=== PATIENT | female | born 1960 | race Asian ===

== ENCOUNTER 2019-06-21 19:18 | Inpatient (IN) | payer MEDICAID, OTHER ==
[~2019-06-21] VITALS: Ht 121.9 cm; Wt 40.8 kg
[2019-06-22] VITALS (32 sets, daily range): BP systolic 95–136; BP diastolic 58–92
--- NOTE | 2019-06-22 05:30 | NUR ---
BOTTOM LINER NOTE RECEIVED PT VIA GURNEY WITH EMT'S AT BEDSIDE PER ACLS PROTOCOL. PT AWAKE AND ALERT. SPEAKS SOME MAURITIAN BUT MAINLY NEPALI SPEAKING.ON BIPAP TOLERATING SETTINGS AND SATURATING WELL. TRANSFERRED SAFELY TO ROOM 251. TELE- ST 104. BILATERAL LOWER EXTREMITIES WRAPPED WITH ZIGGY BANDAGE AND LEG CASTS. NOTED WITH NON-PITTING GENERALIZED EDEMA. WOUND CONSULT ORDERED. C/O 6/10 PAIN TO LEGS AND REPOSITIONED FOR COMFORT. BERNAL CATHETER IN PLACE AND DRAINING BY GRAVITY. BROTHER AT BEDSIDE. CALL LIGHT WITHIN REACH. WILL MONITOR.
[2019-06-22] MEDS ORDERED: MAGNESIUM HYDROXIDE 30 ML UDC PO PRN (06:00)
[2019-06-22] MEDS ORDERED: ONDANSETRON HCL/PF 4 MG/2 ML VIAL IVP PRN (06:00)
[2019-06-22] MEDS ORDERED: Z GUARD REMEDY 2 OZ OINT TP PRN (06:00)
[2019-06-22] MEDS ORDERED: ZOLPIDEM TARTRATE 5 MG TABLET PO PRN (06:00)
[2019-06-22] MEDS ORDERED: ACETAMINOPHEN 325 MG TABLET PO PRN (06:00)
[2019-06-22 06:34] LABS: BASOPHILS # (AUTO) 0.1 /CMM (0.0-0.2); BASOPHILS % (AUTO) 0.5 % (0.0-2.0); EOSINOPHILS % (AUTO) 0.3 % (0.0-6.0); HEMATOCRIT 29 % (33-45); HEMOGLOBIN 9.8 g/dL (11.5-14.8); LYMPHOCYTES # (AUTO) 0.3 /CMM (0.8-4.8); LYMPHOCYTES % (AUTO) 3.3 % (20.0-44.0); MEAN CORPUSCULAR HGB CONC 34 g/dl (31.0-36.0); MEAN CORPUSCULAR VOLUME 90 fL (82-100); MONOCYTES # (AUTO) 0.2 /CMM (0.1-1.30); MONOCYTES % (AUTO) 2.5 % (2.0-12.0); NEUTROPHILS # (AUTO) 9.1 /CMM (1.8-8.9); NEUTROPHILS % (AUTO) 93.4 % (43.0-81.0); PLATELET COUNT (AUTO) 331 /CMM (150-450); RED BLOOD CELL COUNT(AUTO) 3.24 MIL/uL (4.0-5.2); WHITE BLOOD COUNT (AUTO) 9.7 K/uL (4.3-11.0)
[2019-06-22 07:01] LABS: ALBUMIN 1.6 g/dL (3.4-5.0); BILIRUBIN,TOTAL 0.3 mg/dL (0.2-1.0); CALCIUM, SERUM 8.7 mg/dL (8.5-10.1); CREATININE 0.2 mg/dL (0.6-1.3); MAGNESIUM 1.5 mg/dL (1.8-2.4); PHOSPHORUS 1.9 mg/dL (2.5-4.9); POTASSIUM 4.3 mmol/L (3.5-5.1); TOTAL PROTEIN, SERUM 5.5 g/dL (6.4-8.2)
--- NOTE | 2019-06-22 07:45 | NUR ---
ICU/RN INITIAL NOTES,AM RECEIVED BEDSIDE REPORT FROM NIGHT NURSE. PT ALERT, AWAKE, FOLLOWS COMMANDS. PT SYRIAC SPEAKING ONLY, VERY MINIMAL GERMAN. PT ON NASAL CANULA, NO ACUTE DISTRESS NOTED, SINUS TACH ON TELE. PT IS A DIRECT ADMIT FROM [facility]. PT PREVIOUSLY ON BIPAP, NOW TOLERATING NASAL CANULA WELL. BERNAL CATH IN PLACE, DRAINING YELLOW URINE. PT AFEBRILE. BILATERAL LEGS WRAPPED IN ZIGGY WRAP, PT HAD A FALL WITH BILATERAL FEMUR FX. PT IS S/P OPEN REDUCTION AT [facility]. ORTHO CONSULT PENDING. GENERALIZED EDEMA NOTED. PIVS PATENT AND INTACT, NO S/S OF INFECTION OR INFILTRATION NOTED. ALL NEEDS WILL BE ATTENDED TO, SAFETY MEASURES TAKEN, BED IN LOW POSITION, SIDE RAILS UP, CALL LIGHT WITHIN REACH. WILL CONTINUE CARE.
--- NOTE | 2019-06-22 07:45 | NUR ---
METAL CUTTER NOTE PT REMAINED STABLE DURING SHIFT. REMOVED BIPAP AND PLACED ON 4L OF O2 VIA NC AND TOLERATING WELL. NOTED WITH NONPRODUCTIVE COUGH. HOB ELEVATED AND ON ASPIRATION PRECAUTIONS. ALL NEEDS ATTENDED TO PROMPTLY. ENDORSED TO NEXT SHIFT FOR CONTINUITY OF CARE.
[2019-06-22] MEDS: ENOXAPARIN SODIUM 40 MG/0.4 ML DISP.SYRIN SQ SCH (11:28)
[2019-06-22 11:30] LABS: ABG BASE EXCESS 10.9 mmol/L; ABG OXYGEN SATURATION 96.7 % (92.0-98.5); ABG PCO2 43.1 mmHg (35.0-45.0); ABG PH 7.524 (7.350-7.450); AaDO2 127.9 mmHg; COHb 0.3 % (0.5-1.5); MetHb 0.5 % (0.0-1.5); O2Hb 95.9 % (94.0-97.0); SITE, ABG Right Radial; VENT MODE, BG NASAL CANNULA
[2019-06-22] MEDS ORDERED: FEE PK DOSING 1 MIN EA MC ONE (11:43)
--- NOTE | 2019-06-22 12:00 | NUR ---
ICU/RN: FLORES MCCONNELL AT BEDSIDE. PT ASSESSED, NEW XRAY REVIEWED. BILATERAL LEGS REDRESSED WITH ZIGGY WRAP, IMMOBILIZERS/SPLINTS LEFT IN PLACE. NO NEW ORDERS AT THIS TIME. WILL CONTINUE TO MONITOR AND ASSESS. NO SURGICAL PLANS AT THIS TIME. PULSES EQUAL AND PALPABLE. GENERALIZED EDEMA NOTED.
[2019-06-22] MEDS: Magnesium 1GM/D5W 100ML PREMIX 100 ML IV SCH ×2 (12:23→13:21)
[2019-06-22] MEDS: MEROPENEM 500 MG in IV NS 0.9% 50 ML IV SCH ×2 (12:52→21:27)
--- NOTE | 2019-06-22 13:20 | NUR ---
ICU/RN: DIETITIAN AT BEDSIDE. PT NEEDS ASSESSED, NEW ORDERS FOR ENSURE RECEIVED. PT HAS HX OF FAILURE TO THRIVE AND POOR APPETITE.
[2019-06-22] MEDS: VANCOMYCIN 0.75 GM in IV D5W 250 ML IV SCH (13:23)
[2019-06-22] MEDS: ENSURE ENLIVE 237 ML LIQUID (VANILLA) PO SCH ×2 (14:00→17:40)
[2019-06-22] MEDS ORDERED: K PHOS NEUTRAL 250 MG TABLET PO ONE (14:00)
--- NOTE | 2019-06-22 16:00 | NUR ---
ICU/RN: BROTHER AT BEDSIDE. UPDATES GIVEN. PT'S PAIN ASSESSED, PT STATES SHE HAS SOME PAIN BUT DOES NOT WANT ANY PAIN MEDICATION. RATES THE PAIN AT 3/10. I REMINDED THE PT SHE CAN HAVE IT AT ANY TIME. PT CONTINUES TO STATE THAT SHE DOES NOT WANT ANY PAIN MEDICATION. WILL CONTINUE TO REASSESS.
[2019-06-22] MEDS: HYDROMORPHONE 1 MG/1 ML DISP.SYRIN IV PRN ×2 (18:39→21:42)
--- NOTE | 2019-06-22 18:39 | NUR ---
ICU/RN: PRN MAIN MEDICATION GIVEN. WILL REASSESS.
--- NOTE | 2019-06-22 19:21 | NUR ---
ICU/RN: INITIAL NOTES,AM REPORT ENDORSED TO NIGHT NURSE FOR [place]. DURING REPORT PT HR WENT UP TO 155-165, PT DESATURATED TO 88% ON 2 LITERS NASAL CANULA. CALLED, NEW TLO ORDERS RECEIVED, WILL FOLLOW THROUGH. STAT EKG IS BEING DONE, ORDERS FOR CTA PULMONARY RECEIVED, WILL OBTAIN CONSENT FROM BROTHER. JODIN RASHEEDZEJaneth ALSO ORDERED FOR RATE CONTROL. ALL NEEDS ATTENDED TO, SAFETY MEASURES TAKEN, BED IN LOW POSITION, SIDE RAILS UP, CALL LIGHT WITHIN REACH. WILL CONTINUE CARE.
--- NOTE | 2019-06-22 19:30 | NUR ---
DIAPER FOLDER NOTE RECEIVED PT AWAKE. C/O PAIN TO BILATERAL LOWER EXTREMITIES. DILAUDID JUST GIVEN. ON 4L OF O2 VIA NC. TELE- ST 150-160. WILL GIVE CARDIZEM 10MG IVP. BERNAL CATHETER IN PLACE AND DRAINING BY GRAVITY. WILL MONITOR.
[2019-06-22] MEDS: DILTIAZEM HCL 50 MG IV IVP PRN (19:33)
[2019-06-22] MEDS: HYDROCODONE/APAP 5/325MG 1 EACH TABLET PO PRN (20:10)
[2019-06-22] MEDS ORDERED: IOHEXOL-350 100 ML VIAL IV ONE ×2 (20:11→23:50)
[2019-06-22] MEDS ORDERED: CT SWABBABLE VALVE TRANS SET 1 EA INFUS.SET MC ONE ×2 (20:11→23:50)
[2019-06-22] MEDS ORDERED: IV NS 0.9% 250 ML IV ONE ×2 (20:11→23:50)
--- NOTE | 2019-06-22 20:20 | NUR ---
HOSPITAL ADMINISTRATOR NOTE RECEIVED CONSENT FROM BROTHER FOR CTA PULMONARY. PT TAKEN TO CT.
--- NOTE | 2019-06-22 20:46 | NUR ---
BALLOON SANDER NOTE RETURNED WITH PT FROM CT SAFELY.
--- NOTE | 2019-06-22 21:22 | NUR ---
Patient is alert, primary language is Portuguese. Has hx of polio, dextroscoliosis with recent fall.Spoke with brother Leonie [phone] who provided all info. Patient resides with her mother 92years old and father 96years old in the upper level apartment with elevator access. Patient is wheelchair bound, receives assistance with adl's from her parents and brother who lives nearby visits frequently. Discussed dc planning options, family is requesting SNF placement in [facility] area so closer to her parents to visit. Faxed request and left message to [facility] [employer] [facility] [employer] for contracted list of SNF P [phone] / F [phone] Addendum: 06/22/19 at 2125 by KAM PARADA RN Amended: Links added.
--- NOTE | 2019-06-22 23:46 | NUR ---
Patient is alert, primary language is Kiswahili. Has hx of polio, dextroscoliosis with recent fall.Spoke with brother Leonie [phone] who provided all info. Patient resides with her mother 92years old and father 96years old in the upper level apartment with elevator access. Patient is wheelchair bound, receives assistance with adl's from her parents and brother who lives nearby visits frequently. Discussed dc planning options, family will not be able to care for the patient. She will need SNF placement and family requested in [facility] area so closer to her parents to visit. Faxed request and left message to [facility] [employer] for contracted list of SNF P [phone] / F [phone] Addendum: 06/22/19 at 2346 by KAM PARADA RN Amended: Links added.
[2019-06-23] VITALS (15 sets, daily range): BP systolic 112–155; BP diastolic 76–105
[2019-06-23] MEDS: HYDROMORPHONE 1 MG/1 ML DISP.SYRIN IV PRN ×3 (00:42→09:05)
[2019-06-23] MEDS: VANCOMYCIN 0.75 GM in IV D5W 250 ML IV SCH ×2 (02:24→14:19)
[2019-06-23] MEDS: MEROPENEM 500 MG in IV NS 0.9% 50 ML IV SCH ×3 (05:06→20:26)
[2019-06-23] MEDS: HYDROCODONE/APAP 5/325MG 1 EACH TABLET PO PRN ×5 (05:07→20:02)
[2019-06-23 05:15] LABS: BASOPHILS % (AUTO) 0.3 % (0.0-2.0); EOSINOPHILS % (AUTO) 0.6 % (0.0-6.0); HEMATOCRIT 27 % (33-45); HEMOGLOBIN 9.1 g/dL (11.5-14.8); LYMPHOCYTES # (AUTO) 0.5 /CMM (0.8-4.8); LYMPHOCYTES % (AUTO) 5.6 % (20.0-44.0); MEAN CORPUSCULAR HGB CONC 33 g/dl (31.0-36.0); MEAN CORPUSCULAR VOLUME 90 fL (82-100); MONOCYTES # (AUTO) 0.3 /CMM (0.1-1.30); NEUTROPHILS # (AUTO) 7.3 /CMM (1.8-8.9); NEUTROPHILS % (AUTO) 89.5 % (43.0-81.0); PLATELET COUNT (AUTO) 317 /CMM (150-450); RED BLOOD CELL COUNT(AUTO) 3.03 MIL/uL (4.0-5.2); WHITE BLOOD COUNT (AUTO) 8.2 K/uL (4.3-11.0)
[2019-06-23 05:32] LABS: CALCIUM, SERUM 8.2 mg/dL (8.5-10.1); CREATININE 0.3 mg/dL (0.6-1.3); MAGNESIUM 2.2 mg/dL (1.8-2.4); PHOSPHORUS 2.8 mg/dL (2.5-4.9); POTASSIUM 3.3 mmol/L (3.5-5.1)
[2019-06-23 07:15] LABS: FERRITIN 835 ng/mL (8-388)
--- NOTE | 2019-06-23 07:20 | NUR ---
ATHLETICS TEACHER NOTES RECEIVED PT AWAKE IN BED LAYING FLAT PER PATIENTS REQUEST. A/O X4 NO S/S OF RESPIRATORY DISTRESS ON 2 LTRS NASAL CANNULA SATURATING 98%. C/O OF BILATERAL LEG PAIN LAST PAIN MED GIVEN@ 0500. ST [place] ON THE MONITOR AFEBRILE. BERNAL CATH DRAINING CLEAR YELLOW URINE . LALITO LEG CASTS PRESENTS PEDAL PULSES FAINT +3 EDEMA. IV TO RFA # 20/AZRA # 20/EJ#18 AND FUENTES MIDLINE ALL SALINE LOCK FLUSHING WELL. SAFETY AND ASPIRATION PRECAUTIONS IN PLACE BED IN LOW LOCKED POSITION WILL CONT TO MONITOR ACCORDINGLY
[2019-06-23] MEDS: POTASSIUM CHLORIDE 20 MEQ TAB.PRT.SR PO SCH ×2 (07:40→08:38)
--- NOTE | 2019-06-23 07:41 | NUR ---
MECHANICAL MAINTENANCE WORKER NOTE PT REMAINED STABLE DURING SHIFT. PAIN MANAGED PER MD ORDERS. PT STATES NO PAIN AT THIS TIME. CARDIZEM 10 MG IVP GIVEN X1 DURING SHIFT. TELE- ST 113. REPOSITIONED Q2H. ALL NEEDS ATTENDED TO PROMPTLY. WILL ENDORSE TO NEXT SHIFT FOR CONTINUITY OF CARE.
[2019-06-23] MEDS: ENSURE ENLIVE 237 ML LIQUID (VANILLA) PO SCH ×2 (07:50→17:32)
[2019-06-23 08:00] LABS: IRON, SERUM 60 ug/dl (50-175); TOTAL IRON BINDING CAPACITY 203 ug/dl (250-450)
--- NOTE | 2019-06-23 09:00 | NUR ---
VERBAL ORDER TAKEN FROM DR PURI D/Jayde DILAUDID 1 MG Q3HR NEW ORDER DILAUDID 2MG Q4HR FOR SEVERE PAIN
[2019-06-23] MEDS: ENOXAPARIN SODIUM 40 MG/0.4 ML DISP.SYRIN SQ SCH (09:03)
[2019-06-23] MEDS ORDERED: POTASSIUM CHLORIDE 20 MEQ TAB.PRT.SR PO ONE (10:00)
--- NOTE | 2019-06-23 10:00 | NUR ---
NEW ORDERS FOR TRANSFER TO FIRST FLOOR TELE ROOM 110.
--- NOTE | 2019-06-23 10:15 | NUR ---
VERIFIED ORDER OF POTASSIUM 20MeQ WITH DR PURI. PT WAS ALREADY GIVEN 20mEq IN THE AM ORDERED BY DR BROWN. 2SECOND ORDER HELD.
--- NOTE | 2019-06-23 10:42 | NUR ---
REPORT GIVEN TO HUGO RN GOING TO ROOM 110
--- NOTE | 2019-06-23 11:00 | NUR ---
RN NOTES RECEIVED TRANSFER REPORT FROM LULU CANDELARIO FOR CONTINUITY OF CARE.
--- NOTE | 2019-06-23 11:16 | NUR ---
PT TRANSFERRED TO ROOM 110 ACLS PROTOCOL. LEFT MESSAGE ON VOICEMAIL OF BROTHER TO CALL BACK TO INFORM HIM PATIENT WAS TRANSFERRED TO TELE RM 110
--- NOTE | 2019-06-23 11:30 | NUR ---
SPOKE WITH BROTHER INFORMED HIM OF ROOM CHANGED
[2019-06-23] MEDS: HYDROMORPHONE INJ 2 MG/ML DISP.SYRIN IV PRN ×3 (12:55→22:03)
--- NOTE | 2019-06-23 16:55 | NUR ---
RN NOTES PT HR IS ELEVATED AT 130 BPM, UNABLE TO ADMIN PRN DOSE OF CARDIZEM BECAUSE IT IS UNAVAILABLE IN THE PHARMACY, WILL CONTINUE TO MONITOR FOR ANY CHANGES
--- NOTE | 2019-06-23 19:10 | NUR ---
RN OPENING NOTES Received patient asleep on Semi-Paige's position bed on , easily awaken. A/O x3, Syriac speaking but understands and communicates simple Danish. On O2 @2LPM, no SOB/respiratory distress noted at this time. On tele monitor with Sinus Tach noted - 132bpm. Per AM RN, no stock available for Carvidezem. Patient in minimal pain at this time. With FC indwelling well with clear yellow urine output noted. Kept pt on bed clean, dry and comfortable. On fall and aspiration precautions. Will continue to monitor accordingly.
[2019-06-23] MEDS ORDERED: DILTIAZEM HCL 25 MG IV ONE (19:39)
--- NOTE | 2019-06-23 19:42 | NUR ---
RN CLOSING NOTES PATIENT IS RESTING COMFORTABLY IN BED AT THIS TIME, NO S/SX OF RESP DISTRESS OR SOB. PT PAIN IS BEING WELL CONTROLLED WITH MEDICATION. PT NEEDS HAVE BEEN MET, VITAL SIGNS ARE STABLE, NO ACUTE CHANGES OCCURRED THROUGHOUT THE SHIFT. SAFETY MEASURES HAVE BEEN IMPLEMENTED, CALL LIGHT IS WITHIN REACH, BED IS IN LOWEST AND LOCKED POSITION, SIDE RIALS UP X2, PT HAS BEEN ENDORSED TO NIGHTSHIFT RN FOR CONTINUITY OF CARE.
[2019-06-23] MEDS: DILTIAZEM HCL 50 MG IV IVP PRN (19:49)
--- NOTE | 2019-06-23 19:50 | NUR ---
RN NOTES Acquired Diltiazem from CN, administered as ordered. Discussed to patient the medications for pain and its interval, patient verbalized understanding. Will continue to monitor accordingly.
--- NOTE | 2019-06-23 20:02 | NUR ---
RN NOTES Patient's HR in 118. Patient claimed having pain both legs. Administered Hamlin as ordered. Patient able to tolerate well. Will continue to monitor accordingly.
--- NOTE | 2019-06-23 21:08 | NUR ---
RN NOTES Patient asleep, easily awaken. HR 125. Pain meds noted effective. Will continue to monitor accordingly.
[2019-06-24] VITALS (8 sets, daily range): BP systolic 115–171; BP diastolic 74–108
[2019-06-24] MEDS: HYDROCODONE/APAP 5/325MG 1 EACH TABLET PO PRN ×3 (01:50→19:03)
--- NOTE | 2019-06-24 01:54 | NUR ---
RN NOTES Patient asked for analgesic, administered as ordered. HR remained 117bpm. Administered diltiazem as ordered. Patient is monitored closely.
[2019-06-24] MEDS: DILTIAZEM HCL 50 MG IV IVP PRN (02:10)
[2019-06-24] MEDS: VANCOMYCIN 0.75 GM in IV D5W 250 ML IV SCH ×2 (02:11→14:25)
[2019-06-24] MEDS: MEROPENEM 500 MG in IV NS 0.9% 50 ML IV SCH ×3 (04:03→21:00)
[2019-06-24] MEDS: HYDROMORPHONE INJ 2 MG/ML DISP.SYRIN IV PRN ×3 (04:05→17:06)
--- NOTE | 2019-06-24 06:05 | NUR ---
RN CLOSING NOTES Patient intermittently asleep, medicated for pain noted effective. On tele monitor with Sinus Tach noted, HR remain > 110; medicated with Diltiazem Hr remain in 120s. director call MD notified, NNO. No s/sx of discomfort or distress. Kept on bed clean, dry and comfortable. Call light within easy reach. Endorsed to the next shift.
[2019-06-24 07:30] LABS: CALCIUM, SERUM 8.7 mg/dL (8.5-10.1); CREATININE 0.1 mg/dL (0.6-1.3); POTASSIUM 4.2 mmol/L (3.5-5.1)
[2019-06-24] MEDS: ENOXAPARIN SODIUM 40 MG/0.4 ML DISP.SYRIN SQ SCH (08:09)
[2019-06-24] MEDS: ENSURE ENLIVE 237 ML LIQUID (VANILLA) PO SCH ×2 (08:10→17:00)
--- NOTE | 2019-06-24 09:33 | NUR ---
TELE/RN NOTE ADMINISTERED DILAUDID 2 MG IV PUSH DUE TO PAIN BOTH KNEE PAIN 02/20. PATIENT`S BLOOD PRESSURE IS 171/105 AND PULSE 117. WILL CONTINUE TO MONITOR.
--- NOTE | 2019-06-24 09:37 | NUR ---
MS/RN NOTE RECHECKED THE PATIENT`S BLOOD PRESSURE AND NOTED 139/[address] STILL 124. [address] BROWN IS MADE AND PER DR BROWN NO NEW ORDERS AT THIS TIME. SUGGESTED TO MD ADMINISTRATION OF PRN CARDIZEM IV, HOWEVER, PER MD NO NEED. WILL CONTINUE TO MONITOR THE PATIENT CLOSELY. THE PATIENT STATES KNEE PAIN LEVEL OF 5/10. WILL OFFER PAIN MEDICATION AGAIN.
[2019-06-24] MEDS: METOPROLOL TARTRATE 50 MG TABLET PO SCH ×3 (12:38→22:41)
--- NOTE | 2019-06-24 18:29 | NUR ---
MS/RN NOTE THE PATIENT IS ALERT AND ORIENTED X3. COMPLAINS OF BOTH KNEE PAIN 3/10 BUT DOES NOT WANT PAIN MEDICATION AT THIS TIME. RESPIRATION REGULAR AND UNLABORED. DENIES SOB. RECEIVING OXYGEN AT 2L/MIN VIA NASAL CANNULA AND SATURATION IS AT 95%. FUENTES MIDLINE G 18, LEJ G 18, AZRA G 20, RFA G 20 ARE ALL PATENT AND SALINE LOCKED. BED LOW AND LOCKED. SIDE RAILS UP X3. CALL LIGHT WITHIN REACH. WILL ENDORSE TO SENIOR INFRASTRUCTURE ENGINEER.
[2019-06-24] MEDS: TEMAZEPAM 7.5 MG CAPSULE PO PRN (22:41)
[2019-06-25] MEDS: VANCOMYCIN 0.75 GM in IV D5W 250 ML IV SCH ×2 (02:07→14:08)
[2019-06-25 04:00] VITALS: BP 122/79
[2019-06-25] MEDS: MEROPENEM 500 MG in IV NS 0.9% 50 ML IV SCH ×2 (05:58→20:08)
[2019-06-25] MEDS: METOPROLOL TARTRATE 50 MG TABLET PO SCH ×3 (06:00→17:24)
[2019-06-25 06:26] LABS: CALCIUM, SERUM 9.7 mg/dL (8.5-10.1); CREATININE 0.3 mg/dL (0.6-1.3); POTASSIUM 3.9 mmol/L (3.5-5.1)
--- NOTE | 2019-06-25 07:10 | NUR ---
MS RN OPENING NOTES RECEIVED PATIENT ASLEEP, AROUSABLE TO VERBAL AND TACTILE STIMULI. HOB ELEVATED. NO S/S OF RESPIRATORY DISTRESS. ON 02 @ 2L/MIN VIA NC CATIE WELL. HOB ELEVATED. DENIES ANY C/O PAIN NOR DISCOMFORT AT THIS TIME. BLE DRESSING IN PLACE. BED IN LOWEST POSITION, LOCKED. BED ALARM ON. CALL LIGHT WITHIN REACH. BED SIDERAILS UPX2
[2019-06-25 08:00] VITALS: BP 143/91
[2019-06-25] MEDS: ENOXAPARIN SODIUM 40 MG/0.4 ML DISP.SYRIN SQ SCH (08:36)
[2019-06-25] MEDS: ENSURE ENLIVE 237 ML LIQUID (VANILLA) PO SCH ×2 (08:39→17:24)
[2019-06-25] MEDS: HYDROCODONE/APAP 5/325MG 1 EACH TABLET PO PRN ×2 (11:21→20:08)
[2019-06-25 12:00] VITALS: BP 115/69
[2019-06-25 16:00] VITALS: BP 119/88
[2019-06-25] MEDS: HYDROMORPHONE INJ 2 MG/ML DISP.SYRIN IV PRN (18:26)
--- NOTE | 2019-06-25 18:42 | NUR ---
MS RN CLOSING NOTES ALERT AND ORIENTED X3. HOB ELEVATED. NO SOB. ON 02 @ 2L/MIN VIA NC CATIE WELL. HOB ELEVATED. DENIES ANY C/O PAIN NOR DISCOMFORT AT THIS TIME. BLE DRESSING IN PLACE. BERNAL CATH INTACT DRAINING YELLOW COLORED URINE VIA BEDSIDE. BED IN LOWEST POSITION, LOCKED. BED ALARM ON. CALL LIGHT WITHIN REACH. ABLE TO VERBALIZE NEEDS. IN NO APPARENT DISTRESS.
--- NOTE | 2019-06-25 20:14 | NUR ---
MS RN NOTES RECEIVED PATIENT AWAKE IN BED, CALL LIGHT WITHIN REACH. BROTHER AT BEDSIDE. PRN NORCO GIVEN FOR C/O 7/10 BLE PAIN. WILL CONTINUE TO MONITOR FOR EFFECTIVENESS. PERIPHERAL LINES INTACT AND PATENT. FC INTACT AND PATENT DRAINING CLEAR YELLOW URINE. BED IN LOW SETTING. ALL BELONGINGS KEPT NEAR BEDSIDE. WILL CONTINUE TO MONITOR.
[2019-06-25 22:28] VITALS: BP 108/61
[2019-06-26] MEDS: METOPROLOL TARTRATE 50 MG TABLET PO SCH ×4 (00:54→18:26)
[2019-06-26] MEDS: HYDROMORPHONE INJ 2 MG/ML DISP.SYRIN IV PRN ×5 (00:54→18:26)
[2019-06-26] MEDS: VANCOMYCIN 500 MG in IV D5W 100 ML IV SCH ×2 (01:02→13:05)
[2019-06-26 04:00] VITALS: BP 105/74
[2019-06-26] MEDS: MEROPENEM 500 MG in IV NS 0.9% 50 ML IV SCH ×3 (05:10→21:33)
--- NOTE | 2019-06-26 06:34 | NUR ---
MS RN NOTES PATIENT AWAKE IN BED WITH NO DISTRESS NOTED. CALL LIGHT WITHIN REACH. PERIPHERAL LINES INTACT AND PATENT. FC INTACT AND PATENT, DRAINED 300ML YELLOW CLEAR URINE. BLE HARD SPLINTS IN PLACE WITH NO NEW SKIN BREAKDOWN OR DISCOLORATION NOTED. BED IN LOW SETTING. ALL BELONGINGS KEPT NEAR BEDSIDE. WILL ENDORSE TO ONCOMING SHIFT.
[2019-06-26 06:48] LABS: BASOPHILS % (AUTO) 0.4 % (0.0-2.0); HEMATOCRIT 28 % (33-45); HEMOGLOBIN 9.6 g/dL (11.5-14.8); LYMPHOCYTES # (AUTO) 0.7 /CMM (0.8-4.8); LYMPHOCYTES % (AUTO) 6.7 % (20.0-44.0); MEAN CORPUSCULAR HGB CONC 34 g/dl (31.0-36.0); MEAN CORPUSCULAR VOLUME 91 fL (82-100); MONOCYTES # (AUTO) 0.9 /CMM (0.1-1.30); MONOCYTES % (AUTO) 8.5 % (2.0-12.0); NEUTROPHILS # (AUTO) 8.3 /CMM (1.8-8.9); NEUTROPHILS % (AUTO) 82.4 % (43.0-81.0); PLATELET COUNT (AUTO) 374 /CMM (150-450); RED BLOOD CELL COUNT(AUTO) 3.13 MIL/uL (4.0-5.2)
[2019-06-26 07:14] LABS: CALCIUM, SERUM 8.7 mg/dL (8.5-10.1); CREATININE 0.2 mg/dL (0.6-1.3); MAGNESIUM 1.9 mg/dL (1.8-2.4); PHOSPHORUS 2.1 mg/dL (2.5-4.9); POTASSIUM 3.8 mmol/L (3.5-5.1)
[2019-06-26 08:00] VITALS: BP 118/70
[2019-06-26] MEDS: ENSURE ENLIVE 237 ML LIQUID (VANILLA) PO SCH ×2 (08:38→17:21)
[2019-06-26] MEDS: ENOXAPARIN SODIUM 40 MG/0.4 ML DISP.SYRIN SQ SCH (08:52)
[2019-06-26 08:59] LABS: LYMPHOCYTES % (MANUAL) 13 % (16-48); MONOCYTES % (MANUAL) 4 % (0-11.0); NEUTROPHILS % (MANUAL) 80 (42-76)
[2019-06-26] MEDS ORDERED: K PHOS NEUTRAL 250 MG TABLET PO ONE (11:00)
--- NOTE | 2019-06-26 11:03 | NUR ---
alert, oriented, and complained of pain, on both legs, 6-12/20, DILAUDID 2mg ivp given at 1030am did not eat breakfast, " "just want med for pain" 1105 reassessed, pain relieved, and asleep right now
[2019-06-26 12:00] VITALS: BP 118/70
--- NOTE | 2019-06-26 14:25 | NUR ---
continues to ask for DILAUDID every 4hrs, explained to both the pastrycook and the patient, she can have NORCO in between, to effectively relieved the pain, patient adamantly refused the norco 2 mg dilaudid now given ivp
--- NOTE | 2019-06-26 15:18 | NUR ---
Talha STAFFORD called and and inquired about this patient's condition, so far, " havent decided whether we will accept her or not, will let the [facility] block and case maker know"
[2019-06-26 16:00] VITALS: BP 116/83
--- NOTE | 2019-06-26 17:21 | NUR ---
appetite for all meals remains very poor, only drank ENSURE and ate ice cream. Last BARTOLO scheduled for 183
[2019-06-26 20:00] VITALS: BP 131/88
[2019-06-27] MEDS: METOPROLOL TARTRATE 50 MG TABLET PO SCH ×4 (00:36→17:28)
[2019-06-27] MEDS: VANCOMYCIN 500 MG in IV D5W 100 ML IV SCH ×2 (01:29→16:02)
[2019-06-27 04:00] VITALS: BP 136/83
[2019-06-27] MEDS: HYDROMORPHONE INJ 2 MG/ML DISP.SYRIN IV PRN ×4 (04:42→23:04)
[2019-06-27] MEDS: MEROPENEM 500 MG in IV NS 0.9% 50 ML IV SCH ×3 (04:56→21:06)
[2019-06-27 06:42] LABS: CALCIUM, SERUM 8.9 mg/dL (8.5-10.1); CREATININE 0.2 mg/dL (0.6-1.3); POTASSIUM 4.1 mmol/L (3.5-5.1)
--- NOTE | 2019-06-27 07:02 | NUR ---
Report given to oncoming RN. Pt. remains stable.
[2019-06-27] MEDS: ENOXAPARIN SODIUM 40 MG/0.4 ML DISP.SYRIN SQ SCH (08:57)
[2019-06-27] MEDS: ENSURE ENLIVE 237 ML LIQUID (VANILLA) PO SCH ×2 (08:58→16:49)
[2019-06-27 09:14] VITALS: BP 116/52
[2019-06-27 12:00] VITALS: BP 113/73
--- NOTE | 2019-06-27 13:38 | NUR ---
alert, oriented, in bed, asking for painmeds. did not eat breakfast, only asking for ice water, and drank one bottle of ENSURE DILAUDID 2mg ivp given at 1030am, with relilef
--- NOTE | 2019-06-27 16:58 | NUR ---
SECOND DILAUDID 2MG IVP GIVEN AT 1430, WITH RELIEF. REPORT GIVEN TO NORBERTO OSCAR, ALL QUESTIONS ANSWERED. PATIENT LEAVING US, WITH AZRA MID LINE, PATIENT IS TO CONTINUE WITH ABX IVPB FOR FEW MORE WEEKS. DOLORES REMAINS BEC PATIENT CANT WALK YET. AWAITING STUDY SPECIALIST BY AMBULANCE, EXPECTED AT 1830 THIS EVENING
[2019-06-27] MEDS: HYDROCODONE/APAP 5/325MG 1 EACH TABLET PO PRN (17:46)
--- NOTE | 2019-06-27 17:47 | NUR ---
the NH called, refused to take this patient, secondary to isolation status, got the order from attending, dr lacy, to colonize the sputum the facility notified prior to leaving for now, NORCO one po, 5/325mg given for the pain scale of 4/10
[2019-06-27 20:00] VITALS: BP 111/67
--- NOTE | 2019-06-27 20:32 | NUR ---
patient received with hr of 122/min.
--- NOTE | 2019-06-27 20:43 | NUR ---
DR PRATHER INFORMED ABOUT THE PATIEN,S HR AND THAT THE PATIENT IS FOR TRANSFER BUT HR IS ELEVATED,WITH ORDERS TO CANCEL THE TRANSFER AND GIVE SALE BOLOS X 1 NOW.
[2019-06-27] MEDS ORDERED: IV NS 0.9% 500 ML BAG IV ONE (21:00)
[2019-06-27 21:50] VITALS: BP 110/67
--- NOTE | 2019-06-27 21:54 | NUR ---
NSALINE BOLUS CONSUMED AND PATIENT MORE ALERT AND RESPONSIVE, HEART RATE 102/MIN.
--- NOTE | 2019-06-27 22:54 | NUR ---
FAMILY IN AND INFORMED THAT THE PATIENT WAS NOT TRASNFERED DUE TO ELEVATED HR. TRANSFERED TO ROOM 120 BED B
--- NOTE | 2019-06-27 23:12 | NUR ---
DILAUDID 2 MG IVP GIVEN FOR PAIN TO THE BILATERAL LOWER EXTREMTIES,03/22.FAMILY REFUSED NORCO DOSE. PATIENT IS COMPLAINING OF PAIN DIFICULTY OF BREATHING .SAT 98 5 ON 2L NASAL CANNULA.ILL CONTINUE TO MONITOR
[2019-06-27 23:17] VITALS: BP 123/75
--- NOTE | 2019-06-27 23:29 | NUR ---
PHYSICIAN [employer] ATTORNEY PAGED THE PATIEN T IS COMPLAINING OF SHORTNESS OF BREATH EVEN BEFORE THE PATIENT WAS GIVEN DILAUDID DOSE, MESSAGE LEFT WITH THE EXCHANGE, AWAITING RESPONSE
--- NOTE | 2019-06-28 00:02 | NUR ---
LOSS PREVENTION AGENT ON DUTY CALLED BACK BUT NOT ABLE TO RESPOND/ MESSAGE LEFT AGAIN WITH THE EXCHANGE,
--- NOTE | 2019-06-28 00:11 | NUR ---
JENNY PRATHER CALLED BACK AND INFORMED ABOUT THE PATIENT,S COMPLAINTS OF SHORTNESS OF BREATH WITH NO FURTHER ORDERS
[2019-06-28] MEDS: TEMAZEPAM 7.5 MG CAPSULE PO PRN (00:14)
[2019-06-28] MEDS: METOPROLOL TARTRATE 50 MG TABLET PO SCH ×4 (00:15→18:11)
[2019-06-28] MEDS: VANCOMYCIN 500 MG in IV D5W 100 ML IV SCH ×2 (02:21→14:00)
--- NOTE | 2019-06-28 02:31 | NUR ---
desires to talk to Mom and phone provieded ,but not able to connect,patient informed that we can cakll inn the morning and aggreed,
[2019-06-28 04:00] VITALS: BP 121/75
[2019-06-28] MEDS: MEROPENEM 500 MG in IV NS 0.9% 50 ML IV SCH ×3 (04:32→21:13)
[2019-06-28] MEDS: HYDROCODONE/APAP 5/325MG 1 EACH TABLET PO PRN (04:33)
--- NOTE | 2019-06-28 06:52 | NUR ---
cleaned and kept dry. asleep.
[2019-06-28 07:16] LABS: CALCIUM, SERUM 8.2 mg/dL (8.5-10.1); CREATININE 0.2 mg/dL (0.6-1.3); POTASSIUM 4.5 mmol/L (3.5-5.1)
[2019-06-28] MEDS: ENOXAPARIN SODIUM 40 MG/0.4 ML DISP.SYRIN SQ SCH (09:00)
[2019-06-28] MEDS: ENSURE ENLIVE 237 ML LIQUID (VANILLA) PO SCH ×2 (10:24→18:07)
[2019-06-28] MEDS: HYDROMORPHONE INJ 2 MG/ML DISP.SYRIN IV PRN ×3 (10:33→21:13)
[2019-06-28 16:00] VITALS: BP 113/70
[2019-06-28 19:30] VITALS: BP 114/73
--- NOTE | 2019-06-28 19:30 | NUR ---
RN NOTES: CALLED DR PURI AND INFORMING HIM OF PATIENT THAT PATIENT IS BLEEDING ON THE RIGHT THIGH AREA AND HEART RATE HAS BEEN IN 120'S PER REPORTS FROM THE DAY SHIFT RN. STILL WANTS TO D/C THE PATIENT TONIGHT.REFINER OPERATOR RENEA LEONG.
[2019-06-28 20:00] VITALS: BP 111/72
--- NOTE | 2019-06-28 21:38 | NUR ---
PATIENT REFUSED TO BE D/C TONIGHT. TEXTED EPIC GROUP PRATHER. WAITING FOR THE RESPONSE. CHARGE NURSE RENEA LEONG.
--- NOTE | 2019-06-28 21:40 | NUR ---
PATIENT REFUSED TO HAVE THE RIGHT THIGH BLEEDING TO BE REINFORCED. PATIENT WANTS D/C TOMORROW MORNING, CHARGE NURSE AWARE.
--- NOTE | 2019-06-28 22:37 | NUR ---
PATIENT REFUSED TO BE SKIN ASSESSED THE BACK RIGHT NOW.
--- NOTE | 2019-06-28 22:39 | NUR ---
CALL LIGHT WITHIN REACH. BED ALARM ON. BED IN LOWEST AND LOCKED POSITION.
--- NOTE | 2019-06-28 23:01 | NUR ---
CALLED [facility] GROUP NUMBER, BAND SAW OPERATOR CAKE CUTTING DELMIS IS KEV PRATHER, ANSWERING RESTAURANT ASSOCIATE WILL PAGE YAMILKA AND WILL CALL BACK.
--- NOTE | 2019-06-28 23:05 | NUR ---
RECEIVED A CALL FROM JUTE BAG CLIPPER KEV PRATHER, INFORMED HIM OF PATIENT REFUSED TO BE D/C TONIGHT AND SHE WANTS TOMORROW MORNING. CHARGE PEACE MEIER MADE AWARE. CALLED THE WATCH DIAL MAKER SAMMI AND LEFT A MESSAGE RE: PATIENT REFUSED D/C TONIGHT.
[2019-06-28 23:59] VITALS: BP 109/73
[2019-06-29] MEDS: METOPROLOL TARTRATE 50 MG TABLET PO SCH ×3 (00:04→12:00)
--- NOTE | 2019-06-29 00:25 | NUR ---
patient refused to be turned or change position at this time.
[2019-06-29] MEDS: VANCOMYCIN 500 MG in IV D5W 100 ML IV SCH (01:16)
[2019-06-29] MEDS: HYDROMORPHONE INJ 2 MG/ML DISP.SYRIN IV PRN ×2 (01:16→05:02)
--- NOTE | 2019-06-29 01:38 | NUR ---
DILAUDID GIVEN IV FOR PAIN. BEDBATH GIVEN, CHANGED GOWN AND LINENS AND PADS. SACROCOCCYX AREA SKIN IS INTACT, LEFT BUTTOCK SCAR, MEPILEX FOAM DRESSING PLACED OVER SACRAL AREA FOR PROTECTION. RIGHT THIGH DRESSING REINFORCED ORDERED. BERNAL CATH INTACT,DRAINING YELLOW COLORED URINE. CALL LIGHT WITHIN REACH. BED ALARM ON. BED IN LOWEST AND LOCKED POSITION. A/O X4. HOB ELEVATED AT 30DEGREES.
[2019-06-29 04:01] VITALS: BP 106/65
--- NOTE | 2019-06-29 05:26 | NUR ---
REPORTS GIVEN TO EMMETT CANDELARIO FOR CONTINUITY OF CARE.
[2019-06-29 05:32] VITALS: BP 127/73
--- NOTE | 2019-06-29 06:03 | NUR ---
TRANSFER OF CARE RECEIVE PT IN BED AT 0532, PT A/O 2-3, NO S/S OF DISTRESS NOTED, NO C/O OF PAIN VS STABLE. FUENTES MIDLINE INTACT, FOR DISCHARGE TODAY. BLE ZIGGY WRAP SPLINTS NOTED. DRESSING INTACT CLEAN, KEPT CLEAN, DRY AND COMFORTABLE NO BELONGINGS. SAFETY MEASURES AT ALL TIMES. WILL ENDORSE NEXT SHIFT POC. Addendum: 06/29/19 at 0628 by EMMETT MOCK RN PT REFUSING SKIN ASSESSMENT AT THIS TIME DESPITE EXPLAINING RISKS AND BENEFITS WILL CONTINUE TO MONITOR
--- NOTE | 2019-06-29 07:05 | NUR ---
MS RN OPENING NOTES RECEIVED PATIENT IN BED ASLEEP, AROUSABLE TO VERBAL AND TACTILE STIMULI. HOB ELEVATED. NO SOB. ON O2 @ 2L/MIN VIA NC CATIE WELL. FUENTES MIDLINE INTACT AND PATENT. BLE SPLINTS WITH ZIGGY WRAP IN PLACE. CALL LIGHT WITHIN EACH. BED IN LOWEST POSITION, LOCKED. BED ALARM ON. BED SIDERAILS UP X2.
[2019-06-29 07:30] VITALS: BP 101/79
[2019-06-29] MEDS ORDERED: DILTIAZEM HCL CD 240 MG PO SCH ×2 (08:00→09:00)
[2019-06-29] MEDS: ENOXAPARIN SODIUM 40 MG/0.4 ML DISP.SYRIN SQ SCH (08:43)
[2019-06-29] MEDS: ENSURE ENLIVE 237 ML LIQUID (VANILLA) PO SCH ×4 (08:52→17:51)
--- NOTE | 2019-06-29 08:53 | NUR ---
MS RN NOTES HELD DILTIAZEM B/P 99/67 HR 98
[2019-06-29] MEDS ORDERED: CEFTRIAXONE 2 G in IV D5W 100 ML IV SCH (09:00)
[2019-06-29 12:00] VITALS: BP 99/68
[2019-06-29] MEDS: HYDROCODONE/APAP 5/325MG 1 EACH TABLET PO PRN ×2 (13:45→17:50)
--- NOTE | 2019-06-29 18:00 | NUR ---
MS RN CLOSING/DISCHARGE NOTES ALERT AND ORIENTED X4. NO S/S OF RESPIRATORY DISTRESS. ON O2 @ 2L/MIN VIA NC CATIE WELL. FUENTES MIDLINE INTACT AND PATENT. BLE SPLINTS WITH ZIGGY WRAP IN PLACE. CALL LIGHT WITHIN EACH. DISCHARGE INSTRUCTIONS AND PACKET GIVEN TO EMT AND VIA PHONE WHEN REPORT GIVEN TO SUZY AT [facility]. PATIENT HAD NO BELONGINGS. PATIENT LEFT VIA GURNEY VIA AMBULANCE ACCOMPANIED BY 2 EMT IN STABLE CONDITION.
== END 2019-06-29 18:00 | DRG 720 ==
LOC: ICU 06-22 05:01 → TELE1 06-23 10:55 → MEDSG1 06-24 08:44 → MEDSG2 06-29 05:48
PROVIDERS: ADMIT Internal Medicine; ATTEND Internal Medicine
PROC: 05H933Z Insertion of Infusion Device into Right Brachial Vein, Percutaneous Approach (ICD-10-PCS; principal; 2019-06-22)
DX: A41.9 Sepsis, unspecified organism (principal); J96.21 Acute and chronic respiratory failure with hypoxia; E43 Unspecified severe protein-calorie malnutrition; J15.212 Pneumonia due to Methicillin resistant Staphylococcus aureus; R64 Cachexia; M00.9 Pyogenic arthritis, unspecified; E83.42 Hypomagnesemia; M41.9 Scoliosis, unspecified; E87.1 Hypo-osmolality and hyponatremia; E86.1 Hypovolemia; J96.22 Acute and chronic respiratory failure with hypercapnia; B96.20 Unspecified Escherichia coli [E. coli] as the cause of diseases classified elsewhere; R62.7 Adult failure to thrive; G89.29 Other chronic pain; R00.0 Tachycardia, unspecified; J98.4 Other disorders of lung; Z99.3 Dependence on wheelchair; Z86.12 Personal history of poliomyelitis; Z68.27 Body mass index [BMI] 27.0-27.9, adult; D64.9 Anemia, unspecified; S72.402D Unspecified fracture of lower end of left femur, subsequent encounter for closed fracture with routine healing; S72.401D Unspecified fracture of lower end of right femur, subsequent encounter for closed fracture with routine healing; W18.30XD Fall on same level, unspecified, subsequent encounter
CPT/HCPCS: 36415; 36600; 71045-TC; 73564-TC; 80048-TC; 80053-TC; 80061-TC; 80202-TC; 82728-TC; 82803-TC; 83540-TC; 83735-TC; 84100-TC; 85025-TC; 87040-TC; 87081-TC; 93307-TC; 93970-TC; 94799-TC; 97112-TC; 97530-TC; A4216; A6403; G0378; J0696; J1170; J1650; J2185; J3370; J3475; J3490; J7040; J7050; J7060; Q9967

== ENCOUNTER 2025-03-21 19:02 | Inpatient (IN) | payer MEDICARE, OTHER ==
[~2025-03-21] VITALS: Ht 147.3 cm; Wt 45.4 kg
[2025-03-21] MEDS: IV NS 0.9% 1,000 ML BAG IV ONE (19:25)
[2025-03-21] MEDS ORDERED: CEFEPIME 1 GM VIAL ONE (19:50)
[2025-03-21 19:52] LABS: PLATELET COUNT (AUTO) 307 K/uL (150-450); RED BLOOD CELL COUNT(AUTO) 4.14 MIL/uL (4.0-5.2); RED CELL DISTRIBUTION WIDTH 13.9 % (11.5-15.0); WHITE BLOOD COUNT (AUTO) 11.2 K/uL (4.3-11.0)
[2025-03-21 20:05] LABS: CALCIUM, SERUM 10.0 mg/dL (8.5-10.1); CREATININE 0.6 mg/dL (0.6-1.3); INR 0.98 (0.91-1.10); SODIUM SERUM 135 mmol/L (136-145); UREA NITROGEN, BLOOD 28 mg/dL (7-18)
[2025-03-21] MEDS: CEFEPIME 1 GM in IV D5W 50 ML IV ONE (20:05)
[2025-03-21 20:13] LABS: ASPARTATE AMINOTRANSFERASE 31 U/L (15-37); LACTIC ACID 2.1 mmol/L (0.4-2.0); TOTAL PROTEIN, SERUM 7.8 g/dL (6.4-8.2)
[2025-03-21 20:52] LABS: APPEARANCE,URINE TURBID (CLEAR); BLOOD, URINE 3+ Ery/uL (NEGATIVE); LEUKOCYTE ESTERASE ,URINE 3+ (NEGATIVE); NITRITE, URINE NEGATIVE (NEGATIVE); UGLUCOSE NEGATIVE (NEGATIVE)
[2025-03-21] MEDS ORDERED: VANCOMYCIN 1 GM /D5W 250 ML PB IV ONE (20:53)
[2025-03-21 21:00] LABS: ADD URINE CULTURE YES
[2025-03-21] MEDS: ACETAMINOPHEN 325 MG TABLET PO ONE (21:00)
[2025-03-21] MEDS: VANCOMYCIN 1 GM in IV D5W 250 ML IV ONE (21:00)
[2025-03-22] MEDS ORDERED: MAGNESIUM HYDROXIDE 30 ML UDC PO PRN (02:00)
[2025-03-22] MEDS ORDERED: ACETAMINOPHEN 325 MG TABLET PO PRN (02:00)
[2025-03-22] MEDS ORDERED: ONDANSETRON HCL/PF 4 MG/2 ML VIAL IVP PRN (02:00)
[2025-03-22] MEDS ORDERED: Z GUARD REMEDY 4 OZ OINT TP PRN (02:00)
[2025-03-22] MEDS ORDERED: LORAZEPAM 0.5 MG TABLET ONE (03:53)
[2025-03-22] MEDS: LORAZEPAM 1 MG TABLET PO ONE (03:56)
[2025-03-22] MEDS ORDERED: PANTOPRAZOLE 40 MG TABLET.DR PO ONE (07:57)
[2025-03-22] MEDS: PANTOPRAZOLE 40 MG TABLET.DR PO SCH (07:59)
[2025-03-22] MEDS ORDERED: CEFTRIAXONE 1GM BAG (ER ONLY) 50 ML IV ONE (08:02)
[2025-03-22] MEDS ORDERED: OLANZAPINE 10 MG VIAL IM ONE (08:02)
[2025-03-22] MEDS: OLANZAPINE 10 MG VIAL IM ONE (08:28)
[2025-03-22] MEDS: CEFTRIAXONE 1 G in IV D5W 50 ML IV SCH (08:29)
[2025-03-22] MEDS: IV NS 0.9% 1,000 ML IV PRN (15:58)
[2025-03-22 20:00] VITALS: BP 132/85; TEMP 97.9; O2SAT 95
[2025-03-23] VITALS: BP 138/99; TEMP 97.7; O2SAT 97
[2025-03-23 04:00] VITALS: BP 129/82; TEMP 98.8; O2SAT 96
[2025-03-23 07:16] LABS: PLATELET COUNT (AUTO) 269 K/uL (150-450); RED BLOOD CELL COUNT(AUTO) 3.54 MIL/uL (4.0-5.2); RED CELL DISTRIBUTION WIDTH 13.8 % (11.5-15.0); WHITE BLOOD COUNT (AUTO) 6.6 K/uL (4.3-11.0)
[2025-03-23 07:30] VITALS: BP 125/90; TEMP 98.2; O2SAT 95
[2025-03-23 07:43] LABS: CALCIUM, SERUM 8.8 mg/dL (8.5-10.1); CREATININE 0.5 mg/dL (0.6-1.3); PHOSPHORUS 1.8 mg/dL (2.5-4.9); SODIUM SERUM 147.0 mmol/L (136-145); UREA NITROGEN, BLOOD 14.0 mg/dL (7-18)
[2025-03-23] MEDS ORDERED: FURO40TA5 PO (10:07)
[2025-03-23] MEDS ORDERED: POLY250017 PO (10:07)
[2025-03-23] MEDS ORDERED: METO-357 PO (10:07)
[2025-03-23] MEDS ORDERED: MULT-594 PO (10:07)
[2025-03-23] MEDS ORDERED: HYDR-4303 PO (10:07)
[2025-03-23] MEDS ORDERED: CHOL400T11 PO (10:07)
[2025-03-23] MEDS ORDERED: DILT180T11 PO (10:07)
[2025-03-23] MEDS ORDERED: POTA-10 PO (10:07)
[2025-03-23] MEDS ORDERED: ASCO-352 PO (10:07)
[2025-03-23] MEDS ORDERED: DOCU-141 PO (10:07)
[2025-03-23] MEDS ORDERED: ASPI-1420 PO (10:07)
[2025-03-23] MEDS ORDERED: CLON0.5T4 PO (10:07)
[2025-03-23] MEDS ORDERED: HYDROCODONE/APAP 5/325MG TABLET PO PRN (10:30)
[2025-03-23] MEDS: CHOLECALCIFEROL (VITAMIN D 3) 400 UNIT TABLET PO SCH (11:06)
[2025-03-23] MEDS: MULTIVITAMINS,THERAGRAN 1 UDTAB TABLET PO SCH (11:06)
[2025-03-23] MEDS: ASPIRIN EC 81 MG TABLET.DR PO SCH (11:06)
[2025-03-23] MEDS: POTASSIUM CHLORIDE 20 MEQ TAB.PRT.SR PO ONE ×2 (11:06→14:10)
[2025-03-23] MEDS: POLYETHYLENE GLYCOL 3350 17 GM POWD.PACK PO SCH (11:06)
[2025-03-23] MEDS: DILTIAZEM HCL CD 120 MG PO SCH (11:08)
[2025-03-23] MEDS ORDERED: DILTIAZEM SR 60 MG PO SCH (12:00)
[2025-03-23] MEDS: METOPROLOL SUCCINATE 50 MG TAB.SR.24H PO SCH (12:37)
[2025-03-23] MEDS: K PHOS NEUTRAL 250 MG TABLET PO ONE (16:57)
[2025-03-23] MEDS: DOCUSATE SODIUM 100 MG CAPSULE PO SCH (16:57)
[2025-03-23] MEDS: ASCORBIC ACID 500 MG TABLET PO SCH (16:57)
[2025-03-23 20:00] VITALS: BP_SYST 103; BP_SYST 141; BP_DIAS 77; BP_DIAS 97; TEMP 97.6; TEMP 98.2; O2SAT 95; O2SAT 96
[2025-03-24 06:27] LABS: PLATELET COUNT (AUTO) 298 K/uL (150-450); RED BLOOD CELL COUNT(AUTO) 3.71 MIL/uL (4.0-5.2); RED CELL DISTRIBUTION WIDTH 13.8 % (11.5-15.0); WHITE BLOOD COUNT (AUTO) 10.7 K/uL (4.3-11.0)
[2025-03-24 06:46] LABS: CALCIUM, SERUM 9.1 mg/dL (8.5-10.1); CREATININE 0.4 mg/dL (0.6-1.3); SODIUM SERUM 145.0 mmol/L (136-145); UREA NITROGEN, BLOOD 9.0 mg/dL (7-18)
[2025-03-24 08:00] VITALS: BP 124/88; TEMP 97.9; O2SAT 94
[2025-03-24] MEDS: POTASSIUM CHLORIDE 10 MEQ TABLET.SA PO SCH (08:21)
[2025-03-24] MEDS: FUROSEMIDE 40 MG TABLET PO SCH (08:45)
[2025-03-24] MEDS ORDERED: METOPROLOL SUCCINATE 50 MG TAB.SR.24H PO SCH (09:00)
[2025-03-24] MEDS: NEUTRA PHOS 1 POWD.PACKET PO ONE (10:44)
[2025-03-24 16:00] VITALS: BP 104/61; TEMP 97.9; O2SAT 94
[2025-03-24] MEDS: K PHOS NEUTRAL 250 MG TABLET PO ONE (16:51)
[2025-03-24 20:00] VITALS: BP 125/84; TEMP 99.1; O2SAT 96
[2025-03-25 06:39] LABS: CALCIUM, SERUM 9.2 mg/dL (8.5-10.1); CREATININE 0.4 mg/dL (0.6-1.3); PHOSPHORUS 2.5 mg/dL (2.5-4.9); SODIUM SERUM 141.0 mmol/L (136-145); UREA NITROGEN, BLOOD 9.0 mg/dL (7-18)
[2025-03-25 08:59] VITALS: BP 114/77; TEMP 98.1; O2SAT 96
== END 2025-03-25 14:03 | DRG 871 ==
LOC: ER 19:11 → MS IN 03-22 06:20 → MED 03-22 13:11 → TELE 03-22 22:24 → MED 03-23 17:46
PROVIDERS: ADMIT Nurse Practitioner Family; ATTEND Nurse Practitioner Acute Care
DX: A41.9 Sepsis, unspecified organism (principal); G93.41 Metabolic encephalopathy; E87.1 Hypo-osmolality and hyponatremia; E44.1 Mild protein-calorie malnutrition; G93.40 Encephalopathy, unspecified; F03.94 Unspecified dementia, unspecified severity, with anxiety; N39.0 Urinary tract infection, site not specified; E87.20 Acidosis, unspecified; I48.20 Chronic atrial fibrillation, unspecified; E86.0 Dehydration; Z20.822 Contact with and (suspected) exposure to COVID-19; D64.9 Anemia, unspecified; I10 Essential (primary) hypertension; M41.9 Scoliosis, unspecified; M19.90 Unspecified osteoarthritis, unspecified site; F41.9 Anxiety disorder, unspecified; K21.9 Gastro-esophageal reflux disease without esophagitis; Z74.01 Bed confinement status; Z99.3 Dependence on wheelchair; Z86.12 Personal history of poliomyelitis; E88.09 Other disorders of plasma-protein metabolism, not elsewhere classified; F29 Unspecified psychosis not due to a substance or known physiological condition; B96.4 Proteus (mirabilis) (morganii) as the cause of diseases classified elsewhere; Z96.653 Presence of artificial knee joint, bilateral; Z98.890 Other specified postprocedural states; Z87.81 Personal history of (healed) traumatic fracture; Z86.19 Personal history of other infectious and parasitic diseases; Z87.09 Personal history of other diseases of the respiratory system; E87.6 Hypokalemia; R65.20 Severe sepsis without septic shock; R79.89 Other specified abnormal findings of blood chemistry; Z79.899 Other long term (current) drug therapy; Z79.82 Long term (current) use of aspirin
CPT/HCPCS: 36415; 70450-TC; 71045-TC; 80048-TC; 80076-TC; 81001; 83605-TC; 83735-TC; 84100-TC; 84484-TC; 85025-TC; 85730-TC; 87040-TC; 87081-TC; 87086-TC; 87186-TC; A4223; G0378; J0692; J0696; J1200; J3373; J3490; J7030; J7060